=== PATIENT | female | born 1960 | race Caucasian/White ===

== ENCOUNTER 2016-06-23 06:52 | Inpatient (IN) | payer OTHER ==
[~2016-06-23] VITALS: Ht 149.9 cm; Wt 115.6 kg
[~2016-06-23 06:52] MED LIST: BACTRIM,SEPT1 TABLET PO; FERROUS SULFAT325 MG PO; LIPITOR10 MG PO; MULTIVITAMIN1 EAC2 PO; NABUMETONE750 MG PO; PRILOSEC20 MG PO; TYLENOL EXTRA500 MG PO; ZESTORETIC 10-1 EAC1 PO
[2016-06-23 07:49] VITALS: BP 135/65
[2016-06-23 15:10] VITALS: BP 97/53
[2016-06-23 19:32] VITALS: BP 120/62
[2016-06-23 23:35] VITALS: BP 128/67
[2016-06-24 04:22] VITALS: BP 128/62
[2016-06-24 05:53] LABS: EOSINOPHIL (%) 0.5 % (0-5); HEMATOCRIT 39.9 % (36.0-46.0); IMMATURE GRANULOCYTE (%) 0.4 % (0.0-0.7); INSTRUMENT ABS NEUTROPHIL CT 6.4 K/uL; LYMPHOCYTE COUNT 1.2 K/uL (1.0-2.8); MCH 28.4 PG (29.0-34.0); MCHC 31.1 G/DL (30.0-36.0); MEAN PLAT.VOLUME 9.9 uM^3 (9.5-12.4); MONOCYTE (%) 9.2 % (3-12); MONOCYTE COUNT 0.8 K/uL (0-0.8); NEUTROPHIL (%) 75.7 % (45-76); NEUTROPHIL COUNT 6.4 K/uL (1.8-6.4); PLATELET COUNT 276 K/uL (156-360); RBC DIS.WIDTH-CV 13.3 % (11.8-14.6); RBC DIS.WIDTH-SD 45.2 % (39-53); RED BLOOD COUNT 4.37 M/uL (3.80-5.20); WHITE BLOOD COUNT 8.5 K/uL (4.1-10.2)
[2016-06-24 06:17] LABS: MCV 91.3 FL (83-99)
[2016-06-24 06:51] LABS: ANION GAP 7 MEQ/L (2-14); CHLORIDE 98 MEQ/L (99-109); GFR ESTIMATE (CALCULATED) > 59 mL/min/; GLUCOSE 143 mg/dL (70-99); POTASSIUM 4.3 MEQ/L (3.7-5.4); SAMPLE HEMOLYSIS CHECK 0; SAMPLE ICTERIC CHECK 0; SAMPLE LIPEMIA CHECK 0; SODIUM 138 MEQ/L (136-147); UREA NITROGEN (BUN) 9 mg/dL (9-23)
[2016-06-24 07:51] VITALS: BP 135/75
[2016-06-24 11:54] VITALS: BP 133/63
[2016-06-24 16:10] VITALS: BP 110/59
[2016-06-24 23:41] VITALS: BP 125/63
[2016-06-25 05:34] LABS: EOSINOPHIL (%) 0.4 % (0-5); HEMATOCRIT 40.5 % (36.0-46.0); IMMATURE GRANULOCYTE (%) 0.6 % (0.0-0.7); IMMATURE GRANULOCYTE COUNT 0.1 K/uL; INSTRUMENT ABS NEUTROPHIL CT 6.4 K/uL; LYMPHOCYTE COUNT 1.4 K/uL (1.0-2.8); MCH 29.1 PG (29.0-34.0); MCHC 31.6 G/DL (30.0-36.0); MEAN PLAT.VOLUME 10.1 uM^3 (9.5-12.4); MONOCYTE (%) 11.5 % (3-12); NEUTROPHIL (%) 71.7 % (45-76); NEUTROPHIL COUNT 6.4 K/uL (1.8-6.4); PLATELET COUNT 225 K/uL (156-360); RBC DIS.WIDTH-CV 13.2 % (11.8-14.6); RBC DIS.WIDTH-SD 44.6 % (39-53); WHITE BLOOD COUNT 8.9 K/uL (4.1-10.2)
[2016-06-25 07:56] VITALS: BP 129/67
[2016-06-25 16:43] VITALS: BP 127/65
[2016-06-25 23:22] VITALS: BP 116/59
[2016-06-26 07:00] LABS: HEMATOCRIT 31.4 % (36.0-46.0); MCV 90.5 FL (83-99)
[2016-06-26] MEDS ORDERED: BENADRYL25 MG PO (08:24)
[2016-06-26] MEDS ORDERED: OXYCODONE HCL5 MG PO (08:26)
[2016-06-26] MEDS ORDERED: XARELTO10 MG PO (08:26)
[2016-06-26 16:23] VITALS: BP 117/68
[2016-06-26 16:47] LABS: BASE EXCESS 15.6 mEq/L (-3 to +3); METHEMOGLOBIN 1.6 % (0-1.5); PCO2 59 mm Hg (35-45); PO2 72 mm Hg (80-100); SITE RR; pH 7.46 (7.35-7.45)
[2016-06-26 16:48] LABS: COMMENTS - BLOOD GASES A+C+; DEVICE NC; O2 FLOW 2 L/MIN; TOTAL RESP RATE 16 resp/min
[2016-06-26 19:21] VITALS: BP 134/79
[2016-06-26 23:31] VITALS: BP 142/81
[2016-06-27 07:37] VITALS: BP 113/76
== END 2016-06-27 13:33 | disposition home or self-care (01) | DRG 470 ==
LOC: 3EAST 06:52 → 2SOUTH 06:52 → 3EAST 14:25
PROVIDERS: Internal Medicine Pulmonary Disease; Orthopaedic Surgery; Physician Assistant
PROC: 0SRC0J9 Replacement of Right Knee Joint with Synthetic Substitute, Cemented, Open Approach (ICD-10-PCS; principal; 2016-06-23)
DX: M17.11 Unilateral primary osteoarthritis, right knee (principal); J96.12 Chronic respiratory failure with hypercapnia; J96.11 Chronic respiratory failure with hypoxia; E66.2 Morbid (severe) obesity with alveolar hypoventilation; Z68.43 Body mass index [BMI] 50.0-59.9, adult; I10 Essential (primary) hypertension; M25.561 Pain in right knee
CPT/HCPCS: 36600; 71010; 80048; 82803; 85014; 85018; 85025; 94799; 97530 GP; C1713; J0131; J0690; J1885; J2250; J2405; J7050; J7120; L1820; S0020

== ENCOUNTER 2017-07-23 09:44 | Emergency (ER) | payer OTHER ==
[~2017-07-23] VITALS: Ht 149.9 cm; Wt 99.7 kg
[~2017-07-23 09:44] MED LIST changes: +BENADRYL25 MG PO; +OXYCODONE HCL5 MG PO; +XARELTO10 MG PO
[2017-07-23 11:46] LABS: APPEARANCE CLEAR ((CLEAR)); BILIRUBIN NEGATIVE; BLOOD NEGATIVE; COLOR YELLOW ((YELLOW)); GLUCOSE (STRIP) NEGATIVE; KETONES 20; LEUKOCYTES NEGATIVE; NITRITE NEGATIVE; PROTEIN (STRIP) NEGATIVE; UCUL ADDED? NO; UROBILINOGEN 0.2 MG/DL (0.2-1.0)
[2017-07-23 11:54] LABS: HEMATOCRIT 40.2 % (36.0-46.0); HEMOGLOBIN 13.8 G/DL (11.9-15.5); MCH 29.7 PG (29.0-34.0); MCHC 34.3 G/DL (30.0-36.0); MCV 86.6 FL (83-99); PLATELET COUNT 238 K/uL (156-360); RBC DIS.WIDTH-SD 40.5 % (39-53); RED BLOOD COUNT 4.64 M/uL (3.80-5.20); WHITE BLOOD COUNT 6.5 K/uL (4.1-10.2)
[2017-07-23 12:02] LABS: CHLORIDE 105 mEq/L (99-109); POTASSIUM 3.6 mEq/L (3.7-5.4); SODIUM 142 mEq/L (136-147)
[2017-07-23 12:04] LABS: GLUCOSE 117 mg/dL (70-99)
[2017-07-23 12:08] LABS: CREATININE 0.7 mg/dL (0.6-1.3); GFR ESTIMATE (CALCULATED) > 59 mL/min/
[2017-07-23 12:09] LABS: UREA NITROGEN (BUN) 17 mg/dL (9-23)
[2017-07-23] MEDS ORDERED: ZOFRAN ODT4 MG PO (13:53)
[2017-07-23] MEDS ORDERED: PERCOCET 5/31 TABLET PO (13:53)
[2017-07-23 14:36] VITALS: BP 161/90
== END 2017-07-23 14:36 | disposition home or self-care (01) ==
LOC: EME 09:44
PROVIDERS: Emergency Medicine
DX: N13.2 Hydronephrosis with renal and ureteral calculous obstruction (principal); K76.0 Fatty (change of) liver, not elsewhere classified; I10 Essential (primary) hypertension; Z87.442 Personal history of urinary calculi; Z87.891 Personal history of nicotine dependence
CPT/HCPCS: 74176; 80048; 81003; 85027; 99281; 99285; J1885; J2405; J7030

== ENCOUNTER → 2017-07-30 | Outpatient (CLI) | payer OTHER ==
[~2017-07-30] MED LIST changes: +PERCOCET 5/31 TABLET PO; +ZOFRAN ODT4 MG PO
== END | disposition home or self-care (01) ==
LOC: CDC 10:03
DX: Z01.810 Encounter for preprocedural cardiovascular examination (principal)
CPT/HCPCS: 93000

== ENCOUNTER → 2017-08-03 | Outpatient (CLI) | payer OTHER ==
[~2017-08-03] VITALS: Ht 152.4 cm; Wt 99.8 kg
== END | disposition home or self-care (01) ==
LOC: AMB 07:48
PROC: 0TF3XZZ Fragmentation in Right Kidney Pelvis, External Approach (ICD-10-PCS; principal; 2017-08-03)
DX: N20.2 Calculus of kidney with calculus of ureter (principal); Z87.442 Personal history of urinary calculi; E78.5 Hyperlipidemia, unspecified; K21.9 Gastro-esophageal reflux disease without esophagitis; I10 Essential (primary) hypertension; N32.81 Overactive bladder; M79.7 Fibromyalgia; M19.90 Unspecified osteoarthritis, unspecified site; Z91.040 Latex allergy status; Z91.048 Other nonmedicinal substance allergy status; Z96.651 Presence of right artificial knee joint; Z87.891 Personal history of nicotine dependence; Z82.49 Family history of ischemic heart disease and other diseases of the circulatory system; Z82.61 Family history of arthritis
CPT/HCPCS: 74021; J2250